=== PATIENT | female | born 1950 ===

== ENCOUNTER → 2025-02-24 | Outpatient (CLI) | payer OTHER ==
[2025-03-01 06:07] LABS: HSV SUBTYPE SOURCE L MID BACK
[2025-03-01 08:35] LABS: VARICELLA-ZOSTER VIRUS BY PCR Not Detected; VARICELLA-ZOSTER VIRUS SOURCE L MID BACK
== END ==
LOC: LAB SHORT 11:00 → LAB 11:00
PROVIDERS: Physician Assistant Medical
DX: R21 Rash and other nonspecific skin eruption (principal)
CPT/HCPCS: 87529; 87798